=== PATIENT | female | born 1955 | race Caucasian/White ===

== ENCOUNTER 2023-06-21 09:26 | Emergency (ER) | payer MEDICARE, OTHER, SELFPAY ==
[2023-06-21 09:32] VITALS: PULSE 53; O2SAT 96
[2023-06-21 09:34] VITALS: BP 123/74; PULSE 70; RESP 18; TEMP 36.9; O2SAT 99; BMI 24.7
--- NOTE | 2023-06-21 09:57 | PC.NURSE ---
Pt came to ED today because she has been experiencing ongoing swollen, itchy and red eyes for a few weeks. Pt states that she has experienced this in the past and is currently having and autoimmune and RA work up. Area around both eyes is red and edematous. Pt denies any SOB or difficulty breathing. Lung sorensen clear bilaterally. Pt reports that she has been taking benadryl and zyrtec with little to no relief.
[2023-06-21 10:00] VITALS: BP 131/63; PULSE 49; O2SAT 97
[2023-06-21 10:30] VITALS: BP 138/73; PULSE 53; O2SAT 98
--- NOTE | 2023-06-21 10:33 | ED.ALLEREA ---
HPI - Allergic Reaction General Chief complaint: Allergic Reaction Stated complaint: face swelling, possible allergic reaction Time Seen by Provider: 06/21/23 10:31 Source: patient Mode of arrival: Ambulatory History of Present Illness HPI narrative: 68-year-old female who presents with complaint of swelling and irritation around her eyes, rash and itching on her chest and very spots on her arms. Patient states this started about 3 days ago has been slowly worsening. She has had 2 prior episodes that were similar. She notes at least 2 episodes seemed to be preceded by taking a leave for several days to 2 weeks. Patient states no swelling of her airway, no lip or tongue involvement. She states last time she was given steroids which seemed to be helpful. She has seen a outside maintenance worker there has been discussion about evaluation for possible autoimmune source but she is unsure if this is the cause. Patient states no known food or medication allergies otherwise. She denies any chest pain or shortness of breath, no GI or urinary symptoms. She states it just continued to worse in the past few days which is why she presents. Former smoker, occasional alcohol, no recreational drugs. Related Data Previous Rx's Medication Instructions Recorded prednisone 10 mg tablets in a dose See Rx Instructions PO .COMPLEX 06/21/23 pack #21 ea Allergies Allergy/AdvReac Type Severity Reaction Status Date / Time No Known Drug Allergies Allergy Verified 06/21/23 09:34 Review of Systems Review of Systems ROS Unobtainable: All systems reviewed & are unremarkable except as noted in HPI and below Patient History Social History Smoking Status: Former smoker Smoking Status: Former smoker alcohol intake frequency: other Substance Use Type: does not use Exam Narrative Exam Narrative: GEN: well nourished, well appearing female, alert and oriented x 3, patient appears to be in mild distress. HEENT: Atraumatic, pupils are equal round reactive to light, patient has some periorbital swelling bilaterally with some slight erythema and appears to be dry skin, sclerae are not injected nor the conjunctiva, extraocular movements are intact, nares are clear, TMs are clear with no fluid, there is no conjunctival pallor. Throat is clear without any exudates, erythema, tonsillar enlargement or uvular deviation HEART: Regular rate and rhythm without murmur, clicks, rubs. LUNGS:Lungs clear to auscultation, no wheezes, rales, crackles, chest moves symmetrically ABD:bowel sounds normal, soft, non-tender, no guarding, rebound, rigidity, no masses noted, no hepatosplenomegaly MSCL: Non-tender, no muscle atrophy, muscles strength 5/5 upper and lower extremities, full range of motion, normal gait NEURO:CN 2-12 intact, sensation normal SKIN: Patient has some patchy erythematous and dried skin on her upper extremities and anterior chest. There is some excoriation at some of the sites. No vesicles, no blisters. Skin is intact otherwise. No oropharyngeal involvement. No mucosal involvement Initial Vital Signs Initial Vital Signs: Vital Signs Pulse Rate 53 L 06/21/23 09:32 Pulse Oximetry 96 06/21/23 09:32 Course Orders Ordered: Discontinued Medications Prednisone (Prednisone 20 Mg Tablet) 60 mg PO NOW ONE Stop: 06/21/23 10:44 Last Admin: 06/21/23 10:57 Dose: 60 mg Documented By: JAMI Vital Signs Vital signs: Vital Signs - 8 hr 06/21/23 09:32 06/21/23 09:34 06/21/23 10:00 Temperature 98.5 F Pulse Rate 53 L 70 Respiratory Rate 18 Blood Pressure 123/74 131/63 Pulse Oximetry 96 99 Oxygen Delivery Method Room Air 06/21/23 10:00 06/21/23 10:30 06/21/23 10:30 Temperature Pulse Rate 49 L 53 L Respiratory Rate Blood Pressure 138/73 Pulse Oximetry 97 98 Oxygen Delivery Method MDM - Allergic Reaction MDM Narrative Medical decision making narrative: 68-year-old female with complaint of rash that present about 3 days ago she notes there maybe a linkage between NSAIDs. She states it has been slowly progressive has happened 2 times prior and was also slowly progressive with those episodes. She notes periorbital edema, irritation and dryness as well as patchy rash on her chest and upper extremities. Rash on her chest has been improving with some topical steroid. She denies any other systemic symptoms. Discharge Plan Departure Patient Disposition: Home Clinical Impression: Allergic reaction Activity Restrictions/Additional Instructions: I hope you have some continued improvement. I would avoid NSAIDs for now, this includes ibuprofen, Aleve, naproxen. Take steroids until completed. [facility] [place] You can use topical hydrocortisone [id number] to the chest and extremities on areas of irritation but do not use on your face. Please return if you have any swelling of the lips, tongue or airway, chest pain or tightness in her chest, vomiting, new swelling in her extremities, blistering rash or worsening rash or other new or concerning changes. Prescriptions: New prednisone 10 mg tablets,dose pack See Rx Instructions .ROUTE .COMPLEX Qty: 21 0RF Rx Instructions: 6 tabs p.o. x1 day, then 5 tabs p.o. x1 day, then 4 tablets p.o. x1 day, then 3 tabs p.o. x1 day, then 2 tabs p.o. x1 day, then 1 tab p.o. x1 day Referrals: Miscellaneous,Doctor, MD [Primary Care Provider] - Stand Alone Forms: Patient Portal/API
[2023-06-21] MEDS: predniSONE 20 MG TABLET 60 MG PO (10:57)
== END 2023-06-21 11:01 | disposition home or self-care (01) ==
PROVIDERS: Emergency Provider Emergency Medicine
DX: R21 Rash and other nonspecific skin eruption (principal); T78.40XA Allergy, unspecified, initial encounter
CPT/HCPCS: 99283

== ENCOUNTER → 2023-08-19 11:00 | Outpatient (CLI) | payer MEDICARE, OTHER, SELFPAY ==
[2023-08-19 12:22] LABS: Hematocrit 40.7 % (36-46); Hemoglobin 13.6 g/dL (12.0-16.0); Mean Corpuscular HGB Conc 33.5 % (30-36); Mean Corpuscular Hemoglobin 30.1 PG (26-34); Mean Corpuscular Volume 89.8 fL (80-100); Platelet Count 211 X10^3/uL (150-400); Red Blood Cell Count 4.53 X10^6/uL (4.0-5.2); Red Cell Distribution Width 14.3 % (11.6-14.8); White Blood Cell Count 3.7 X10^3/uL (4.5-11.0)
[2023-08-19 12:31] LABS: HEMOLYSIS < 15 (0-50)
[2023-08-19 12:33] LABS: Erythrocyte Sedimentation Rate 16 MM/HR (0-20)
[2023-08-19 12:38] LABS: Alanine Aminotransferase 20 IU/L (<35); Albumin 4.3 g/dL (3.5-5.0); Albumin Globulin Ratio 1.5 (1.0-2.8); Alkaline Phosphatase 97 U/L (38-126); Aspartate Aminotransferase 33 IU/L (14-36); Bilirubin Total 0.6 mg/dL (0.2-1.3); Blood Urea Nitrogen 20 mg/dL (7-17); C-Reactive Protein Quant 0.9 mg/dL (<1.0); Calcium 9.1 mg/dL (8.4-10.2); Carbon Dioxide 25 mmol/L (22-32); Chloride 110 mmol/L (98-107); Cholesterol 276 mg/dL (140-199); Estimated Glomerular Filt Rate > 60 mL/min (>60); Globulin 2.8 g/dL (1.7-4.1); Glucose 101 mg/dL (80-110); HDL Cholesterol 109 mg/dL (40-60); LDL Cholesterol Calculated 153 mg/dL (<100); Neutrophils Absolute Manual 2368 /uL (3000-5900); Potassium 4.6 mmol/L (3.4-5.1); RBC Morphology Normal Morphology; Sodium 140 mmol/L (137-145); Total Cells Counted 100; Total Protein 7.1 g/dL (6.3-8.2); Triglycerides 70 mg/dL (35-150)
[2023-08-19 12:40] LABS: Rheumatoid Factor 16.4 IU/mL (<12.0)
[2023-08-19 12:57] LABS: Free T3, Triiodothyronine Free 3.36 pg/mL (2.77-5.27); Free T4, Direct Thyroxine 0.95 ng/dL (0.78-2.19)
[2023-08-19 13:11] LABS: Thyroid Stimulating Hormone 2.99 uIU/mL (0.47-4.68)
[2023-08-20 07:36] LABS: Thyroid Peroxidase Antibodies 46 IU/mL (0-34)
[2023-08-23 16:07] LABS: ANA Screen, IFA Negative (.)
== END ==
PROVIDERS: PCP Nurse Practitioner; Referring Provider Nurse Practitioner; Visit Provider Nurse Practitioner
DX: M25.50 Pain in unspecified joint (principal); E03.9 Hypothyroidism, unspecified; R21 Rash and other nonspecific skin eruption; E06.3 Autoimmune thyroiditis; E78.5 Hyperlipidemia, unspecified; Z83.2 Family history of diseases of the blood and blood-forming organs and certain disorders involving the immune mechanism; Z82.49 Family history of ischemic heart disease and other diseases of the circulatory system
CPT/HCPCS: 36415; 80053; 80061; 84439; 84443; 84481; 85025; 85651; 86038; 86140; 86376; 86430

== ENCOUNTER 2024-12-19 16:14 | Emergency (ER) | payer MEDICARE, OTHER, SELFPAY ==
[2024-12-19 17:15] VITALS: BP 122/58; PULSE 60; RESP 18; TEMP 36.8; O2SAT 99; BMI 24.3
--- NOTE | 2024-12-19 17:19 | DI.RAD.S_ITS ---
PROCEDURE: XR FOOT RT MIN 3V INDICATIONS: pain post playing tennis 3 weeks ago. TECHNIQUE: 3 views of the foot were acquired. COMPARISON: None. FINDINGS: Bones: Xrww-ko-wkemowfb hallux valgus. No acute fracture or dislocation. Subtle erosive changes over medial cortex of 1st metatarsal head is seen. No suspicious bony lesions. Soft tissues: Soft tissue swelling over medial aspect of 1st metatarsal head. No abnormal soft tissue calcifications . IMPRESSION: No acute right foot fracture or dislocation. Wlcd-lj-rdiypyph hallux valgus with overlying soft tissue bunion. Dictated by: Guillermo Pelletier M.D. on 12/19/2024 at 17:44 Approved by: Guillermo Pelletier M.D. on 12/19/2024 at 17:45
--- NOTE | 2024-12-19 18:20 | ED_ITS ---
HPI - Extremity Injury (Lower) <Yolanda Earl PA-C - Last Filed: 12/19/24 18:59> General Chief Complaint: Extremity Injury, Lower Stated Complaint: Injured foot Time Seen by Provider: 12/19/24 17:35 Source: patient Mode of arrival: Ambulatory History of Present Illness HPI Narrative: Ms. Dixon is a pleasant 69-year-old female with a past medical history of hypothyroidism who presents to the emergency department for intermittent pain in her right foot x3 weeks. Patient states the pain first started while she was playing tennis, but does not recall a specific injury. The pain has been coming and going since then, it is worse when she wakes up in the morning when she plays tennis. Describes the pain as on the dorsal mid aspect of her foot. Denies any pain on the plantar aspect of her foot. No numbness, tingling, skin color changes, wounds. Related Data Previous Rx's ?Medication ?Instructions ?Recorded estradiol 0.0375 mg/24 hr 1 patch transdermal 2XW #24 ea 09/02/23 semiweekly transdermal patch progesterone micronized 200 mg 200 mg PO BEDTIME #90 c aps 09/16/23 capsule Allergies Allergy/AdvReac Type Severity Reaction Status Date / Time NSAIDS Allergy Mild allergies Uncoded 12/19/24 17:15 Review of Systems <Yolanda Earl PA-C - Last Filed: 12/19/24 18:59> Review of Systems ROS Unobtainable: All systems reviewed & are unremarkable except as noted in HPI and below Patient History <Yolanda Earl PA-C - Last Filed: 12/19/24 18:59> Medical History Psoriasis Eczema Actinic keratosis Osteoarthritis Foot pain Chronic back pain Ankle pain Factor V Leiden Human papilloma virus Abnormal Pap smear of cervix Colon polyps Skin cancer (~2013) Breast cancer (~1990) Rheumatoid arthritis Bradly's disease Family history of early CAD Hypothyroidism (~2013) Joint pain Family history of autoimmune disorder Surgical History Anesthesia History of bunionectomy (~1992) S/P removal of right ovary (~2013) History of lumpectomy (~1990) H/O left knee surgery (~1974) Family History Father History of heart disease Brother Diabetes mellitus Brother Rheumatoid arthritis Social History Smoking Status: Former smoker Smoking Status: Former smoker alcohol intake frequency: other Exam <Yolanda Earl PA-C - Last Filed: 12/19/24 18:59> Narrative Exam Narrative: GENERAL: 69 year old patient appears stated age. Well-developed patient, in no acute distress. HEAD: Atraumatic. Normocephalic. EYES: No scleral icterus. No injection or drainage. NECK: Trachea midline. Cervical ROM intact. CARDIOVASCULAR: Regular rate RESPIRATORY: ?Nonlabored respirations. ?Speaking in clear, full sentences. EXTREMITIES: Patient has focal tenderness to palpation of the right dorsal midfoot near the proximal aspect of the 1st metatarsal. He does have slight hallux valgus but no tenderness of the 1st MTP. No erythema, edema or ecchymosis. 2+ DP and PT pulse present. No medial or lateral malleolus pain. Brisk cap refill on toes and sensation intact to light touch in the toes. NEURO: AOx3. ?Clear speech. ?Moves all 4 extremities appropriately. SKIN: No rash or erythema of visible areas Initial Vital Signs Initial Vital Signs: Vital Signs Temperature 98.2 F 12/19/24 17:15 Pulse Rate 60 12/19/24 17:15 Respiratory Rate 18 12/19/24 17:15 Blood Pressure 122/58 L 12/19/24 17:15 Pulse Oximetry 99 12/19/24 17:15 Oxygen Delivery Method Room Air 12/19/24 17:15 <Rola Ron DO - Last Filed: 12/19/24 23:41> Initial Vital Signs Initial Vital Signs: Vital Signs Temperature 98.2 F 12/19/24 17:15 Pulse Rate 60 12/19/24 17:15 Respiratory Rate 18 12/19/24 17:15 Blood Pressure 122/58 L 12/19/24 17:15 Pulse Oximetry 99 12/19/24 17:15 Oxygen Delivery Method Room Air 12/19/24 17:15 Course <Yolanda Earl PA-C - Last Filed: 12/19/24 18:59> Orders Ordered: ED Orders 12/19/24 17:19 XR foot RT min 3V Stat Vital Signs Vital signs: Vital Signs - 8 hr 12/19/24 17:15 Temperature 98.2 F Pulse Rate 60 Respiratory Rate 18 Blood Pressure 122/58 L Pulse Oximetry 99 Oxygen Delivery Method Room Air <Rola Ron DO - Last Filed: 12/19/24 23:41> Orders Ordered: ED Orders 12/19/24 17:19 XR foot RT min 3V Stat Vital Signs Vital signs: Vital Signs - 8 hr 12/19/24 17:15 Temperature 98.2 F Pulse Rate 60 Respiratory Rate 18 Blood Pressure 122/58 L Pulse Oximetry 99 Oxygen Delivery Method Room Air MDM - Extremity Injury (Lower) <Yolanda Earl PA-C - Last Filed: 12/19/24 18:59> Medical Records Attestation: I reviewed the patient's medical records. Imaging Data Right Foot XR: Radiologist's Impression: PROCEDURE: XR FOOT RT MIN 3V INDICATIONS: pain post playing tennis 3 weeks ago. TECHNIQUE: 3 views of the foot were acquired. COMPARISON: None. FINDINGS: Bones: Gvis-gs-myxrdolb hallux valgus. No acute fracture or dislocation. Subtle erosive changes over medial cortex of 1st metatarsal head is seen. No suspicious bony lesions. Soft tissues: Soft tissue swelling over medial aspect of 1st metatarsal head. No abnormal soft tissue calcifications . IMPRESSION: No acute right foot fracture or dislocation. Rwdl-nv-duatvkwt hallux valgus with overlying soft tissue bunion. Dictated by: Guillermo Pelletier M.D. on 12/19/2024 at 17:44 Approved by: Guillermo Pelletier M.D. on 12/19/2024 at 17:45 [facility] [place] Narrative Medical decision making narrative: 69-year-old female with a past medical history of hypothyroidism who presents to the emergency department for intermittent pain in her right foot x3 weeks. Differential diagnosis includes but is not limited to right foot sprain, strain fracture, dislocation, osteoarthritis, etc. On exam patient is in no acute distress, nontoxic appearing, vital signs appropriate. Right foot is neurovascularly intact with strong pulses, brisk cap refill, sensation to light touch intact. She has tenderness to palpation of the burst metatarsal region, but closer to the proximal midfoot aspect. No direct trauma but it was brought on by playing tennis. X-ray right foot obtained in triage reveals eogp-vg-vmehqogl hallux valgus. No acute fracture dislocation. Subtle erosive changes over the medial cortex of the 1st metatarsal head. No suspicious bony lesions. Imaging results with the printed discussed with the patient. Recommended follow up with Podiatry for further evaluation, discussed supportive care, supportive foot wear, rest, ice, compression, elevation. Patient verbalized understanding all information is agreeable with the plan, she is eagerly requesting discharge home, she is ambulatory and stable at this time. Discharge Plan Departure Patient Disposition: Home Clinical Impression: Foot pain, right Hallux valgus Qualifiers: Laterality: right Qualified Code(s): M20.11 - Hallux valgus (acquired), right foot Instructions: DI for Bunion, DI for Foot Pain Activity Restrictions/Additional Instructions: Dear Ms. Dixon, Thank you for coming to the emergency department. Today you were evaluated for pain of your right foot. X-ray did not reveal any broken bones or dislocations, you do have ywsh-lh-skdctckc hallux valgus and some chronic changes of your 1st metatarsal. Please follow up with tarring machine operator Dr. Annabelle Rothman or [facility] ([phone]) for further evaluation. Please wear supportive footwear. Please use RICE therapy for your pain in addition to acetaminophen. Rest the painful area. Ice the area of pain/swelling for at least 15 minutes, 4x a day. Compress the area of swelling using a brace, wrap, or splint if applied. Elevate the painful or swollen extremity by supporting it above the level of the heart with pillows when sitting or laying. Please follow up with your primary care doctor within the next 2-3 days for ER follow-up. (If you do not have a PCP you can call [phone]. ?to schedule an appointment with an [facility] Primary Care Provider) IF YOU DEVELOP ANY NEW OR WORSENING SYMPTOMS, RETURN TO THE ER! Please read the attached instructions, they highlight more specific treatments and interventions for you at home. Thank you for letting me participate in your care, Yolanda Earl PA-C Prescriptions: No Action progesterone micronized 200 mg capsule 200 mg PO BEDTIME Qty: 90 3RF Rx Instructions: Post menopausal HRT estradiol 0.0375 mg/24 hr patch semiweekly 1 patch transdermal 2XW Qty: 24 3RF Rx Instructions: apply 1 patch for 3 days alternating with 1 patch for 4 days each week for 3 wks per 4-wk cycle Referrals: Lulu Pennington ARNP [Primary Care Provider, Family Practice] Annabelle Rothman DPM [Physician, Podiatry] Referral Note: R foot pain Stand Alone Forms: Patient Portal/API ED Sign-out <Rola Ron DO - Last Filed: 12/19/24 23:41> Cosign ED Attending Cosignature Attestation: I was immediately available in the department for consultation.
--- NOTE | 2024-12-19 18:36 | PC.NURSE ---
12/19/2024 @7424 RN reviewed DC instructions w/ pt. PT verbalized understanding and has no further questions at this time. Pt ambulated off unit DC to home @7543
== END 2024-12-19 18:35 | disposition home or self-care (01) ==
PROVIDERS: Emergency Provider Physician Assistant; PCP Nurse Practitioner
DX: M20.11 Hallux valgus (acquired), right foot (principal); M79.671 Pain in right foot
CPT/HCPCS: 73630; 99281; 99283